=== PATIENT | male | born 2000 | race Caucasian/White ===

== ENCOUNTER 2022-06-04 21:50 | Emergency (ER) | payer BC, SELFPAY ==
[2022-06-04 22:13] VITALS: BP 147/77; PULSE 94; RESP 20; TEMP 37.8; O2SAT 96; BMI 25.9
--- NOTE | 2022-06-04 22:43 | CRLHL7_ITS ---
For Patients: As a result of the Cures Act, medical imaging exams and procedure reports are released immediately into your electronic medical record. You may view this report before your referring provider. If you have questions, please contact your health care provider. INDICATION: Fever cough. TECHNIQUE: Chest 1 views. COMPARISON: None. FINDINGS: Lungs: Clear lungs. No consolidation. Pleura: No pleural effusion or pneumothorax. Heart and Mediastinum: The cardiomediastinal silhouette is normal. The vessels are unremarkable. Bones: Unremarkable. IMPRESSION: No acute cardiopulmonary disease. Dictated by Yohan Grimes MD @ 06/05/2022 12:04:53 AM (Electronically Signed)
--- NOTE | 2022-06-04 22:44 | ED.GENADULT ---
HPI - General Adult General Time Seen by Provider: 22:44 Date Seen: 06/04/22 Chief complaint: Unspecified Complaint, Adult Stated complaint: Sore throat, blurry vision Time Seen by Provider: 06/04/22 22:33 Source: patient Mode of arrival: ambulatory Limitations: no limitations History of Present Illness HPI narrative: 21 year-old male presents today with 4 days of upper respiratory illness. Sore throat followed by fever, body aches, fatigue, 3 days ago. Today says he ?feels weird? and says his neck hurt. He denies nausea, vomiting, diarrhea. He is in for discontinued to go to practice. He took Tylenol about 6 hours ago, has not taken ibuprofen for his symptoms. He had COVID a couple of months ago. He denies generalized rash but says he has noticed spots on his hands. No known ill contacts. Related Data Home Medications Medication Instructions Recorded Confirmed Mucinex 06/04/22 Tylenol 06/04/22 Allergies Allergy/AdvReac Type Severity Reaction Status Date / Time cefprozil [From Cefzil] Allergy Hives Verified 06/04/22 22:20 Penicillins Allergy Hives Verified 06/04/22 22:20 PFSH PFS Social History Smoking Status: Never smoker How often do you have a drink containing alcohol: never AUDIT-C Alcohol total score: 0 Non-prescribed substance use details: nicotine pouches Exam Narrative: Exam Narrative: General: Well-developed and well-nourished, no acute distress, appears ill but nontoxic Head: Atraumatic and normocephalic Eyes: Pupils are equal reactive, extraocular motions intact, conjunctiva clear ENT: External nose and ears are normal, posterior pharynx without erythema or exudate Neck: No midline cervical tenderness, full spontaneous range of motion the neck, trachea midline, no adenopathy, no nuchal rigidity Heart: Regular rate and rhythm no murmurs or thrills Lungs: Clear to auscultation bilaterally without wheezes or crackles Abdomen: Soft, nontender, nondistended with active bowel sounds Musculoskeletal: No tenderness, deformity, or edema Neurologic: Awake, alert, and oriented x3, no gross focal neurologic deficits, cranial nerves intact as tested Psych: Mood and affect are appropriate Skin: No rashes, some tiny red spots on the thenar eminence bilaterally Const: Vital Signs, click to edit/add: Vital Signs - 24 hr 06/04/22 22:13 06/04/22 23:13 06/05/22 00:00 Temperature 100.1 F H Pulse Rate [Left P ulse Oximeter] 94 89 82 Respiratory Rate 20 18 Blood Pressure [Ri ght Upper Arm] 147/77 H 120/63 Pulse Oximetry 96 98 96 Oxygen Delivery Me thod Room Air Course Course Hospital Course: Patient seen and examined, prior records are reviewed. Differential diagnosis includes but not limited to COVID, influenza, strep, mono, pneumonia, sepsis. Patient presents with upper respiratory symptoms and fever for the last couple of days. On exam here, no nuchal rigidity duration since onset of symptoms, bacterial meningitis is unlikely. Lungs are clear although is still possible with body aches, cough, chest x-rays ordered. Patient had COVID in March so repeat COVID unlikely, influenza possible. IV fluids and Toradol ordered. Reevaluation(s) Reevaluation #1: Labs are reassuring including negative influenza. Patient recheck, heart rate is improved and he feels much better, clinically improved as well. On re-examination, patient is able to touch his chin to his chest and has full spontaneous range of motion of the neck with no meningeal signs. Meningitis clinically unlikely. Discussed continued symptomatic treatment and patient is urged. Time: 00:19 Vital Signs Vital signs: Initial Vital Signs Temperature 100.1 F H 06/04/22 22:13 Temperature Source Temporal Artery Scan 06/04/22 22:13 Pulse Rate 94 06/04/22 22:13 Respiratory Rate 20 06/04/22 22:13 Blood Pressure 147/77 H 06/04/22 22:13 Blood Pressure Mean 100 06/04/22 22:13 Blood Pressure Position Supine 06/04/22 22:13 Pulse Oximetry 96 06/04/22 22:13 Oxygen Delivery Method 06/04/22 22:13 Vital Signs Temperature 100.1 F H 06/04/22 22:13 Pulse Rate 94 06/04/22 22:13 Respiratory Rate 20 06/04/22 22:13 Blood Pressure 147/77 H 06/04/22 22:13 Pulse Oximetry 96 06/04/22 22:13 Oxygen Delivery Method 06/04/22 22:13 Temperature 100.1 F H 06/04/22 22:13 Pulse Rate 82 06/05/22 00:00 Respiratory Rate 18 06/04/22 23:13 Blood Pressure 120/63 06/05/22 00:00 Pulse Oximetry 96 06/05/22 00:00 Oxygen Delivery Method 06/04/22 22:13 Medical Decision Making Lab Data Labs: Lab Results 06/04/22 06/04/22 06/04/22 Range/Units 23:00 23:00 23:08 WBC 8.75 (4.50-11.00) K/uL RBC 4.66 (4.30-5.90) m/uL Hgb 13.3 L (13.5-17.5) gm/dL Hct 39.2 (37.0-53.0) % MCV 84 (80-100) fL MCH 29 (26-34) pg MCHC 34 (32-36) gm/dL RDW Coeff of Jessica 12.4 (11.5-15.5) % Plt Count 187 (140-440) K/uL Neut % (Auto) 75.9 H (42.0-72.0) % Lymph % (Auto) 13.8 L (20-44) % Kenton % (Auto) 9.8 (0.0-11.0) % Eos % (Auto) 0.2 (0.0-7.0) % Baso % (Auto) 0.2 (0.0-3.0) % Neut # (Auto) 6.60 (1.7-7.0) K/uL Lymph # (Auto) 1.20 (0.90-2.90) K/uL Kenton # (Auto) 0.90 (0.00-0.90) K/UL Eos # (Auto) 0.02 (0.00-0.50) K/uL Baso # (Auto) 0.02 (0.00-0.30) K/uL Abs Immat Gran (auto) 0.01 (0.00-0.30) K/uL Sodium (135-149) mmol/L Potassium (3.6-5.1) mmol/L Chloride (96-114) mmol/L Carbon Dioxide (20-32) mmol/L BUN (5-24) mg/dL Creatinine (0.5-1.5) mg/dL Estimated Creat Clear Estimated GFR ml/min Glucose (60-115) mg/dL Calcium (8.4-10.6) mg/dL SARS-CoV-2 (PCR) Negative SARS-CoV-2 (Negative) Influenza Type A (PCR) Negative PCR FLU A (Negative) Influenza Type B (PCR) Negative PCR FLU B (Negative) Group A Strep DNA NOT DETECTED (No Detected) 06/04/22 Range/Units 23:08 WBC (4.50-11.00) K/uL RBC (4.30-5.90) m/uL Hgb (13.5-17.5) gm/dL Hct (37.0-53.0) % MCV (80-100) fL MCH (26-34) pg MCHC (32-36) gm/dL RDW Coeff of Jessica (11.5-15.5) % Plt Count (140-440) K/uL Neut % (Auto) (42.0-72.0) % Lymph % (Auto) (20-44) % Kenton % (Auto) (0.0-11.0) % Eos % (Auto) (0.0-7.0) % Baso % (Auto) (0.0-3.0) % Neut # (Auto) (1.7-7.0) K/uL Lymph # (Auto) (0.90-2.90) K/uL Kenton # (Auto) (0.00-0.90) K/UL Eos # (Auto) (0.00-0.50) K/uL Baso # (Auto) (0.00-0.30) K/uL Abs Immat Gran (auto) (0.00-0.30) K/uL Sodium 137 (135-149) mmol/L Potassium 3.8 (3.6-5.1) mmol/L Chloride 97 (96-114) mmol/L Carbon Dioxide 28 (20-32) mmol/L BUN 18 (5-24) mg/dL Creatinine 1.0 (0.5-1.5) mg/dL Estimated Creat Clear 133.17 Estimated GFR 111 ml/min Glucose 102 (60-115) mg/dL Calcium 9.2 (8.4-10.6) mg/dL SARS-CoV-2 (PCR) (Negative) Influenza Type A (PCR) (Negative) Influenza Type B (PCR) (Negative) Group A Strep DNA (No Detected) Imaging Data Chest x-ray: Attestation: I have reviewed the pertinent imaging results. My impression: Negative Radiologist's impression: No acute findings Discharge Plan Discharge Clinical Impression: Acute viral syndrome Patient Disposition: Home, Self-Care Condition: Improved Instructions: Viral Syndrome (ED) Additional Instructions: Take Tylenol 1000 mg every 6 hours, alternate with ibuprofen 600 mg every 6 hours Lots of rest and fluids. No football practice until June 08 Activity Level: No strenuous activity Discharge Diet: Regular Prescriptions: No Action Tylenol Mucinex Stand Alone Forms: [facility] Info Inst[facility]
[2022-06-04 23:13] VITALS: PULSE 89; RESP 18; O2SAT 98
[2022-06-04] MEDS: 0.9 % SODIUM CHLORIDE 1000 ml 1,000 ML IV (23:24)
[2022-06-04] MEDS: KETOROLAC 15 MG/ML inj IVP (23:24)
[2022-06-04 23:29] LABS: Basophils Absolute Auto 0.02 K/uL (0.00-0.30); Basophils Percent Auto 0.2 % (0.0-3.0); Eosinophils Absolute Auto 0.02 K/uL (0.00-0.50); Eosinophils Percent Auto 0.2 % (0.0-7.0); Hematocrit 39.2 % (37.0-53.0); Hemoglobin* 13.3 gm/dL (13.5-17.5); Immature Granulocytes Abs Auto 0.01 K/uL (0.00-0.30); Lymphocytes Percent Auto 13.8 % (20-44); Mean Corpuscular HGB Conc 34 gm/dL (32-36); Mean Corpuscular Hemoglobin 29 pg (26-34); Mean Corpuscular Volume 84 fL (80-100); Monocytes Percent Auto 9.8 % (0.0-11.0); Neutrophils Percent Auto 75.9 % (42.0-72.0); Platelet Count* 187 K/uL (140-440); RDW Coefficient of Variation % 12.4 % (11.5-15.5); Red Blood Count 4.66 m/uL (4.30-5.90); White Blood Count* 8.75 K/uL (4.50-11.00)
[2022-06-04 23:30] LABS: Slide Review Reflex No
[2022-06-04 23:35] LABS: Strep A DNA Probe* NOT DETECTED (No Detected)
[2022-06-04 23:46] LABS: Chloride* 97 mmol/L (96-114); Potassium* 3.8 mmol/L (3.6-5.1); Sodium* 137 mmol/L (135-149)
[2022-06-04 23:48] LABS: PCR FLU A Negative PCR FLU A (Negative); PCR FLU B Negative PCR FLU B (Negative)
[2022-06-04 23:48] LABS: Est. Creatinine Clearance* 133.17; Estimated Glomerular Filt Rate 111 ml/min
[2022-06-04 23:49] LABS: SARS PCR* Negative SARS-CoV-2 (Negative)
[2022-06-04 23:49] LABS: Blood Urea Nitrogen* 18 mg/dL (5-24); Calcium* 9.2 mg/dL (8.4-10.6); Carbon Dioxide* 28 mmol/L (20-32); Glucose* 102 mg/dL (60-115)
[2022-06-05] VITALS: BP 120/63; PULSE 82; O2SAT 96
== END 2022-06-05 00:33 | disposition home or self-care (01) ==
PROVIDERS: Emergency Provider Family Medicine
DX: J06.9 Acute upper respiratory infection, unspecified (principal); B34.9 Viral infection, unspecified
CPT/HCPCS: 36415; 71045; 80048; 85025; 87631; 87651; 96361; 96374; 99284; J1885; J7030

== ENCOUNTER 2022-08-15 01:25 | Emergency (ER) | payer BC, SELFPAY ==
[2022-08-15 01:35] VITALS: BP 134/83; PULSE 87; RESP 20; TEMP 36.3; O2SAT 97; BMI 26.0
--- NOTE | 2022-08-15 01:50 | CRLHL7_ITS ---
For Patients: As a result of the Century Cures Act, medical imaging exams and procedure reports are released immediately into your electronic medical record. You may view this report before your referring provider. If you have questions, please contact your health care provider. Indication: Left testicular pain. Technique: Ultrasound of the scrotum and contents. Sonographic morris-scale images were obtained with spectral and color Doppler waveform and spectral waveform analysis of the testicles. Comparison: None. Findings: Both testicles are normal in size and echotexture. No masses. No suspicious calcifications. Normal arterial and venous color Doppler blood flow and spectral waveforms are present in both testicles. Epididymis: Small 0.2 cm right epididymal head cyst. Slightly heterogeneous appearance of the left epididymis, otherwise unremarkable. Normal blood flow. Other: No sign of hydrocele. No sign of varicocele. Scrotal wall is normal. Limited sonographic images in the area pain demonstrates no gross abnormality. Impression: 1. Unremarkable sonographic appearance of the testes. No sign of torsion or inflammation. 2. Small right epididymal head cyst. Slightly heterogeneous left epididymis, otherwise unremarkable. 3. No gross abnormality in the focal area of pain. Dictated by Hector Ramos MD @ 08/15/2022 3:31:35 AM (Electronically Signed)
--- NOTE | 2022-08-15 02:01 | ED.MALEGU ---
HPI - Male Genitourinary General Chief complaint: Urogenital Problems, Male Stated complaint: discomfort Time Seen by Provider: 08/15/22 01:29 Source: patient Mode of arrival: ambulatory Limitations: no limitations History of Present Illness HPI Narrative: 22-year-old male presents the emergency department with left scrotum pain, testicular area for the last 3 days. No trauma no injury. No dysuria, no hematuria, no new sexual partners. Pain is worse with sitting and lying down, it is a little better with standing up. Has not noted any swelling, skin lesions. No prior history of similar symptoms. A he and constant pain, as stated it is relieved by standing and movement. No history of known hernia. Eating and drinking normally, voiding and stooling normally. No fevers. No systemic viral illness symptoms. Has not tried any interventions to help with pain. Pain does seem to be worsening, prevents him from sleeping. Made an appointment in clinic for tomorrow, felt like he could not wait due to the worsening pain. States his past medical history is benign, no major long-term health problems. No long-term medications. Allergies are to penicillin and cephalosporins. Socially with no pertinent travel, no new partners, no illicit substance use. ROS is negative for other generalized, urinary, genital, GI, musculoskeletal, cardiovascular respiratory changes Related Data Previous Rx's Medication Instructions Recorded doxycycline hyclate 100 mg capsule 100 mg PO BID #20 caps 08/15/22 Allergies Allergy/AdvReac Type Severity Reaction Status Date / Time cefprozil [From Cefzil] Allergy Hives Verified 08/15/22 01:38 Penicillins Allergy Hives Verified 08/15/22 01:38 [facility] Medical History (Updated 08/15/22 @ 03:17 by Whitney Martin MD) Patient denies significant medical history Social History Smoking Status: Never smoker How often do you have a drink containing alcohol: never AUDIT-C Alcohol total score: 0 Non-prescribed substance use: denies use Non-prescribed substance use details: nicotine pouches service: No Exam Narrative: Exam Narrative: General he is awake alert, pleasant interactive and not in distress. Mood behavior and affect are appropriate. Normal eye contact. Head appears atraumatic eyes with no icterus, no pallor, normal visual tracking and gaze. Breathing is unlabored, speaks in full sentences with no difficulty. Regular rate on pulse. The abdomen is soft and nondistended. Nontender. 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 In a supine position, a right testicle normal to palpation and visually. Left testicle mildly enlarged, especially at the superior pole tender along the epididymis. Tender in this area as well. Does not transilluminate. Testicle in normal position. Standing exam, hernia not noted. Penis normal in appearance without any redness, unusual drainage or ulcerations. Normal palpation of the inguinal canal. The skin is warm well perfused without any rashes bruises or signs of trauma. Const: Vital Signs, click to edit/add: Vital Signs - 24 hr 08/15/22 01:35 Temperature 97.4 F L Pulse Rate [Left P ulse Oximeter] 87 Respiratory Rate 20 Blood Pressure [Ri ght Upper Arm] 134/83 Pulse Oximetry 97 Oxygen Delivery Me thod Room Air Documenting provider has reviewed patient's vital signs: yes Course Course Hospital Course: Differential diagnosis including STI, urinary infection, orchitis, epididymitis, varicocele, hydrocele, testicular torsion. Ultrasound recommended. 1000 mg of Tylenol p.o. x1 for pain, reassess after ultrasound. Vital Signs Vital signs: Initial Vital Signs Temperature 97.4 F L 08/15/22 01:35 Temperature Source Temporal Artery Scan 08/15/22 01:35 Pulse Rate 87 08/15/22 01:35 Respiratory Rate 20 08/15/22 01:35 Blood Pressure 134/83 08/15/22 01:35 Blood Pressure Mean 100 08/15/22 01:35 Blood Pressure Position Sitting 08/15/22 01:35 Pulse Oximetry 97 08/15/22 01:35 Oxygen Delivery Method 08/15/22 01:35 Vital Signs Temperature 97.4 F L 08/15/22 01:35 Pulse Rate 87 08/15/22 01:35 Respiratory Rate 20 08/15/22 01:35 Blood Pressure 134/83 08/15/22 01:35 Pulse Oximetry 97 08/15/22 01:35 Oxygen Delivery Method 08/15/22 01:35 Temperature 97.4 F L 08/15/22 01:35 Pulse Rate 87 08/15/22 01:35 Respiratory Rate 20 08/15/22 01:35 Blood Pressure 134/83 08/15/22 01:35 Pulse Oximetry 97 08/15/22 01:35 Oxygen Delivery Method 08/15/22 01:35 MDM - Male Genitourinary MDM Narrative Medical decision making narrative: Patient with partial improvement in pain with Tylenol. Ultrasound of testicle reviewed. Some heterogenicity per my interpretation noted to the epididymis which is consistent with exam. No signs of torsion mass or other abnormality. No obvious hernia. Findings discussed with patient. Will be given 100 mg of p.o. doxycycline x1. Will also be given 600 mg of ibuprofen. Tylenol and ibuprofen dosing discussed. Follow up with primary care provider if not improving in 7-10 days. No restrictions. Report confirmed with Radiology. Discharge Plan Discharge Clinical Impression: Epididymitis Patient Disposition: Home, Self-Care Condition: Improved Instructions: Epididymitis (ED) Additional Instructions: There are no signs of sexually transmitted infections, bladder infections or more importantly testicular masses or testicular torsion. On exam, the epididymis which is a structure on the top and back part of the testicle is slightly swollen and inflamed. This matches with what we see on ultrasound. Often, this is caused by bacteria the liver either on the skin or in the urinary tract. It is more common in athletes. We have started you on an antibiotic, doxycycline. Take this 1 pill 2 times a day for 10 days. For pain control, make sure that you are keeping up with steady dosing of ibuprofen. Use 600 mg every 6 hours. If the pain is still bothersome, alternate in with Tylenol 1000 mg every 6 hours. You can take 1 than the other every 3 hours in an alternating fashion for better pain control. Cold compresses can often help if the pain is very bothersome. It is okay to use a sleep aid like melatonin which is [id number] if you are still having difficulty sleeping. For most people after couple of days on antibiotics, the pain gets markedly better. Follow-up with a primary care provider if her symptoms are not improving in 7-10 days. Activity Level: No Restrictions Discharge Diet: Regular Prescriptions: New doxycycline hyclate 100 mg capsule 100 mg PO BID Qty: 20 0RF Follow Up/Referrals: Provider,Not a Local [Primary Care Provider] - Stand Alone Forms: [facility] Info Instructions
[2022-08-15] MEDS: ACETAMINOPHEN 500 MG TABLET 1000 MG PO (02:02)
== END 2022-08-15 03:19 | disposition home or self-care (01) ==
PROVIDERS: Emergency Provider Family Medicine
DX: N45.1 Epididymitis (principal)
CPT/HCPCS: 76870; 93976; 99282; 99283; A9270